=== PATIENT | male | born 1965 | race Caucasian/White ===

== ENCOUNTER 2019-08-17 08:18 | Inpatient (IN) | payer MEDICARE ==
[~2019-08-17] VITALS: Ht 180.3 cm; Wt 72.2 kg
[2019-08-17] MEDS ORDERED: ONDANSETRON 2MG/ML, 2ML ONE (08:45)
[2019-08-17] MEDS ORDERED: KETOROLAC 30 MG/1 ML ONE (08:45)
[2019-08-17] MEDS ORDERED: BICT1TAB PO (08:53)
[2019-08-17 08:56] LABS: BASOPHILS # (AUTO) 0.07 x10^3/uL (0-0.1); BASOPHILS % (AUTO) 1 % (0-1); EOSINOPHILS # (AUTO) 0.16 x10^3/uL (0-0.4); EOSINOPHILS % (AUTO) 2 % (1-7); LYMPHOCYTES # (AUTO) 2.02 x10^3/uL (1-3.4); LYMPHOCYTES % (AUTO) 26 % (22-44); MD NO; MEAN CORPUSCULAR HEMOGLOBIN 30.5 pg (27.5-34.5); MEAN CORPUSCULAR HGB CONC 33.2 g/dL (33.2-36.2); MEAN CORPUSCULAR VOLUME 91.9 fL (81-97); MEAN PLATELET VOLUME 6.9 fL (7.4-10.4); MONOCYTES # (AUTO) 0.57 x10^3/uL (0.2-0.8); MONOCYTES % (AUTO) 7 % (2-9); NEUTROPHILS % (AUTO) 63 % (42-75); PLATELET COUNT 396 x10^3/uL (130-400); RED BLOOD COUNT 4.75 x10^6/uL (4.38-5.82); RED CELL DISTRIBUTION WIDTH 13.8 % (9.4-14.8)
--- NOTE | 2019-08-17 08:56 | NUR ---
PT MEDICATED ORDERED. PT UP TO RESTROOM FOR UA SPECIMEN. REPORT TO MEGHANN SALES. PT C/O LEFT FLANK PAIN RADIATING TO LLQ WITH HX OF KIDNEY STONES.
[2019-08-17] MEDS ORDERED: KETOROLAC 30 MG/1 ML IVPush ONE (09:00)
[2019-08-17] MEDS ORDERED: SODIUM CHLORIDE FLUSH 10ML SYR IVF ONE (09:00)
[2019-08-17] MEDS ORDERED: PLEASE ENTER ALLERGIES MC SCH (09:00)
[2019-08-17] MEDS ORDERED: HYDROmorphone 1 MG/ML, 1ML INJ IVPush PRN (09:00)
[2019-08-17] MEDS ORDERED: ONDANSETRON 2MG/ML, 2ML IVPush ONE (09:00)
[2019-08-17 09:02] LABS: ALANINE AMINOTRANSFERASE 40 U/L (12-78); ALBUMIN 3.2 g/dL (3.4-5.0); ANION GAP 4 mmol/L (5-15); CALCIUM 8.5 mg/dL (8.5-10.1); CHLORIDE 108 mmol/L (98-107); CREATININE 1.04 mg/dL (0.7-1.3)
[2019-08-17 09:05] LABS: ALKALINE PHOSPHATASE 131 U/L (45-117); BILIRUBIN,TOTAL 0.3 mg/dL (0.2-1.0); TOTAL PROTEIN 8.5 g/dL (6.4-8.2)
--- NOTE | 2019-08-17 09:07 | NUR ---
report from prakash mims vss pt made aware of need for ua. as
[2019-08-17 09:22] LABS: MICROSCOPIC AUTO
[2019-08-17 09:24] LABS: CULTURE INDICATED? YES
[2019-08-17] MEDS ORDERED: CEFTRIAXONE PMX 1GM/50ML 50 ML ONE (09:58)
[2019-08-17] MEDS ORDERED: CEFTRIAXONE PMX 1GM/50ML 50 ML IV ONE (10:00)
[2019-08-17] MEDS ORDERED: NEOSPORIN OINT. PKT 1 PACKET ONE (11:49)
--- NOTE | 2019-08-17 11:57 | NUR ---
PT TBADM FOR KIDNEY STONE. REPORT TO JAMES SALES.
--- NOTE | 2019-08-17 11:59 | NUR ---
RECEIVED REPORT FROM HENRRY ZAVALETA. ASSUMING CARE AT THIS TIME. PT RESTING COMFORTABLY ON [employer] WATCHING TV.
[2019-08-17] MEDS ORDERED: AMPICILLIN/SULBACTAM 3 GM in SODIUM CHLORIDE 0.9% 100 ML IV ONE (12:00)
--- NOTE | 2019-08-17 12:21 | NUR ---
IV ABX STARTED PER JUN.
--- NOTE | 2019-08-17 12:27 | NUR ---
REPORT GIVEN TO SUNI CULP RN.
[2019-08-17] MEDS ORDERED: ONDANSETRON ODT 4 MG PO PRN (12:30)
[2019-08-17] MEDS ORDERED: KETOROLAC 30 MG/1 ML IV PRN (12:30)
[2019-08-17] MEDS: ENOXAPARIN 40 MG/0.4 ML SQ SCH (12:30)
[2019-08-17] MEDS ORDERED: morphine SULFATE 10 MG/ML, 1ML IVPush PRN (12:30)
[2019-08-17] MEDS ORDERED: ACETAMINOPHEN 325 MG TABLET PO PRN (12:30)
[2019-08-17] MEDS ORDERED: ONDANSETRON 2MG/ML, 2ML IVPush PRN (12:30)
[2019-08-17] MEDS: SODIUM CHLORIDE 0.9% 1,000 ML IV SCH (13:55)
[2019-08-17] MEDS: CEFTRIAXONE PMX 1GM/50ML 50 ML IV SCH (13:55)
[2019-08-17 14:47] VITALS: BP 124/86
[2019-08-17 19:57] VITALS: BP 108/76
[2019-08-18 01:38] VITALS: BP 118/80
[2019-08-18] MEDS: SODIUM CHLORIDE 0.9% 1,000 ML IV SCH (03:34)
[2019-08-18 06:20] LABS: BASOPHILS # (AUTO) 0.07 x10^3/uL (0-0.1); BASOPHILS % (AUTO) 1 % (0-1); EOSINOPHILS # (AUTO) 0.13 x10^3/uL (0-0.4); EOSINOPHILS % (AUTO) 2 % (1-7); LYMPHOCYTES % (AUTO) 27 % (22-44); MD NO; MEAN CORPUSCULAR HEMOGLOBIN 30.7 pg (27.5-34.5); MEAN CORPUSCULAR HGB CONC 33.4 g/dL (33.2-36.2); MEAN PLATELET VOLUME 6.8 fL (7.4-10.4); MONOCYTES # (AUTO) 0.55 x10^3/uL (0.2-0.8); MONOCYTES % (AUTO) 9 % (2-9); NEUTROPHILS # (AUTO) 3.65 x10^3/uL (1.8-6.8); NEUTROPHILS % (AUTO) 61 % (42-75); PLATELET COUNT 336 x10^3/uL (130-400); RED BLOOD COUNT 4.55 x10^6/uL (4.38-5.82)
[2019-08-18 06:31] LABS: ANION GAP 5 mmol/L (5-15); CHLORIDE 110 mmol/L (98-107); CREATININE 0.76 mg/dL (0.7-1.3)
[2019-08-18 07:50] VITALS: BP 110/72
[2019-08-18] MEDS ORDERED: BICTEGRAV/EMTRICIT/TENOFOV ALA TAB PO SCH (09:00)
[2019-08-18] MEDS: ENOXAPARIN 40 MG/0.4 ML SQ SCH (12:30)
[2019-08-18] MEDS: CEFTRIAXONE PMX 1GM/50ML 50 ML IV SCH (13:07)
[2019-08-18 14:09] VITALS: BP 104/68
== END 2019-08-18 14:42 | disposition left against medical advice (07) | DRG 694 ==
LOC: ED 08:31 → EDIP 12:10 → 3N 13:15
PROVIDERS: ADMIT Internal Medicine; ATTEND Internal Medicine
DX: N20.0 Calculus of kidney (principal); N39.0 Urinary tract infection, site not specified; Q63.1 Lobulated, fused and horseshoe kidney; Z53.29 Procedure and treatment not carried out because of patient's decision for other reasons
CPT/HCPCS: 36415; 74176; 80048; 80053; 81001; 85025; 87086; 96365; 96375; G0378; J0295; J0696; J1885; J2405; J7030

== ENCOUNTER 2019-10-01 07:03 | Day surgery (SDC) | payer MEDICARE ==
[2019-09-30 11:00] VITALS: BP 113/72
[2019-09-30 11:42] LABS: INTERNATIONAL NORMALIZED RATIO 0.95 (0.93-1.1); PROTHROMBIN TIME 10.1 Seconds (9.6-11.5)
[~2019-10-01] VITALS: Ht 180.3 cm; Wt 71.1 kg
[~2019-10-01 07:03] MED LIST: BICT1TAB PO
[2019-10-01] MEDS ORDERED: LACTATED RINGERS 1,000 ML IV SCH (07:25)
[2019-10-01 07:29] VITALS: BP 113/72
[2019-10-01] MEDS ORDERED: CHLORHEXIDINE 15 ML UDC MM ONE (07:30)
[2019-10-01] MEDS ORDERED: CHLORHEXIDINE 15 ML UDC ONE (07:48)
[2019-10-01] MEDS ORDERED: DIPHENHYDRAMINE 50 MG/ML, 1ML IVPush PRN (08:00)
[2019-10-01] MEDS ORDERED: EPHEDRINE 50 MG/ML, 1ML IVPush PRN (08:00)
[2019-10-01] MEDS ORDERED: HYDROmorphone 1 MG/ML, 1ML INJ IVPush PRN (08:00)
[2019-10-01] MEDS ORDERED: LABETALOL 5MG/ML, 20ML IV PRN (08:00)
[2019-10-01] MEDS ORDERED: morphine SULFATE 10 MG/ML, 1ML IVPush PRN (08:00)
[2019-10-01] MEDS ORDERED: hydrALAzine 20 MG/ML, 1ML IV PRN (08:00)
[2019-10-01] MEDS ORDERED: LORazepam 2 MG/ML, 1ML IVPush PRN (08:00)
[2019-10-01] MEDS ORDERED: ACETAMINOPHEN 325 MG TABLET PO PRN (08:00)
[2019-10-01] MEDS ORDERED: OXYcodone 5 MG/5 ML ORAL.SOL UDC PO PRN (08:00)
[2019-10-01] MEDS ORDERED: HYDROcodone/APAP 7.5-325MG/15ML UDC PO PRN (08:00)
[2019-10-01] MEDS ORDERED: DIAZEPAM 5 MG/ML, 2ML IVPush PRN (08:00)
[2019-10-01] MEDS ORDERED: ALBUTEROL/IPRATROPIUM 2.5MG/0.5MG, 3 ML NPPB PRN (08:00)
[2019-10-01] MEDS ORDERED: MIDAZOLAM 1 MG/ML, 2ML IV PRN (08:00)
[2019-10-01] MEDS ORDERED: KETOROLAC 30 MG/1 ML IVPush PRN (08:00)
[2019-10-01] MEDS ORDERED: HALOPERIDOL 5 MG/ML IV PRN (08:00)
[2019-10-01] MEDS ORDERED: MEPERIDINE/PF 25MG/0.5ML IVPush PRN (08:00)
[2019-10-01] MEDS ORDERED: ONDANSETRON 2MG/ML, 2ML IVPush PRN (08:00)
[2019-10-01] MEDS ORDERED: LIDOCAINE-MPF 2% ,5ML ONE (08:18)
[2019-10-01] MEDS ORDERED: ROCURONIUM 10MG/ML,5ML ONE (08:18)
[2019-10-01] MEDS ORDERED: GLYCOPYRROLATE 0.2MG/1ML, 5ML ONE (08:18)
[2019-10-01] MEDS ORDERED: DEXAMETHASONE 4 MG/ML, 1ML ONE (08:18)
[2019-10-01] MEDS ORDERED: PROPOFOL 10 MG/ML, 20ML ONE (08:18)
[2019-10-01] MEDS ORDERED: FENTANYL PF 250 MCG/5ML ONE (08:19)
[2019-10-01] MEDS ORDERED: MIDAZOLAM 1 MG/ML, 2ML ONE (08:19)
[2019-10-01] MEDS ORDERED: LIDOCAINE 2%,20 ML JEL.PF.APP MM ONE (10:05)
== END 2019-10-01 11:55 | disposition home or self-care (01) ==
LOC: OUT 07:03
PROVIDERS: ATTEND Urology
DX: N20.0 Calculus of kidney (principal); Z11.59 Encounter for screening for other viral diseases; I10 Essential (primary) hypertension; F12.90 Cannabis use, unspecified, uncomplicated; Z87.891 Personal history of nicotine dependence; Z79.899 Other long term (current) drug therapy; Z98.890 Other specified postprocedural states
CPT/HCPCS: 36415; 52356; 74018; 82360; 85610; 85730; 87635; 88300; C1769; C2617; J1100; J2250; J2704; J3010; J7120; 76000

== ENCOUNTER → 2019-11-12 | Outpatient (CLI) | payer MEDICARE ==
[~2019-11-12] MED LIST changes: +ACET500T64 PO; +CEFD300C37 PO; +SULF1TAB23 PO
== END | disposition home or self-care (01) ==
LOC: RAD 11:15
PROVIDERS: ATTEND Urology
DX: N20.0 Calculus of kidney (principal)
CPT/HCPCS: 74018

== ENCOUNTER 2019-11-14 14:39 | Outpatient (CLI) | payer MEDICARE | END 2019-11-14 23:59 | disposition home or self-care (01) | LOC: STAR 14:39 | PROVIDERS: ATTEND Orthopaedic Surgery | DX: Z01.818 Encounter for other preprocedural examination (principal); Z11.59 Encounter for screening for other viral diseases | CPT/HCPCS: 36415; 87635 ==

== ENCOUNTER 2019-11-19 05:24 | Day surgery (SDC) | payer MEDICARE ==
[~2019-11-19] VITALS: Ht 180.3 cm; Wt 70.0 kg
[2019-11-19 06:06] VITALS: BP 114/61
[2019-11-19] MEDS ORDERED: CHLORHEXIDINE 15 ML UDC MM STA (06:08)
[2019-11-19] MEDS ORDERED: LACTATED RINGERS 1,000 ML IV ONE (06:08)
[2019-11-19] MEDS ORDERED: CHLORHEXIDINE 15 ML UDC ONE (06:11)
[2019-11-19] MEDS ORDERED: FENTANYL PF 250 MCG/5ML ONE (06:22)
[2019-11-19] MEDS ORDERED: MIDAZOLAM 1 MG/ML, 2ML ONE (06:22)
[2019-11-19] MEDS ORDERED: BUPIVACAINE/PF 0.25% ONE (06:25)
[2019-11-19] MEDS ORDERED: CLINDAMYCIN 150 MG/ML, 6ML ONE (06:25)
[2019-11-19] MEDS ORDERED: LIDOCAINE/PF 1%-EPI 1:200K, 30 ML ONE (06:25)
[2019-11-19] MEDS ORDERED: EPINEPHRINE 1 MG/ML, 1ML ONE (06:26)
[2019-11-19] MEDS ORDERED: ACETAMINOPHEN 500 MG TABLET ONE (06:36)
[2019-11-19] MEDS ORDERED: LIDOCAINE PF 2%, 5ML ONE (06:56)
[2019-11-19] MEDS ORDERED: ACETAMINOPHEN 500 MG TABLET PO ONE (07:00)
[2019-11-19] MEDS ORDERED: ONDANSETRON 2MG/ML, 2ML IVPush PRN (07:30)
[2019-11-19] MEDS ORDERED: PROMETHAZINE 25 MG/ML, 1ML IVPush PRN (07:30)
[2019-11-19] MEDS ORDERED: PROMETHAZINE 25 MG SUPP PR PRN (07:30)
[2019-11-19] MEDS ORDERED: OXYcodone 5 MG/5 ML ORAL.SOL UDC PO PRN (07:30)
[2019-11-19] MEDS ORDERED: SUCCINYLCHOLINE 20 MG/ML, 10ML ONE (07:37)
[2019-11-19] MEDS ORDERED: ROCURONIUM 10MG/ML,5ML ONE (07:37)
[2019-11-19] MEDS ORDERED: PROPOFOL 10 MG/ML, 20ML ONE (07:37)
[2019-11-19] MEDS ORDERED: ONDANSETRON 2MG/ML, 2ML ONE (07:37)
[2019-11-19] MEDS ORDERED: CEFAZOLIN 1,000 MG ONE (07:37)
[2019-11-19] MEDS ORDERED: GLYCOPYRROLATE 0.2MG/1ML, 5ML ONE (07:37)
[2019-11-19] MEDS ORDERED: NEOSTIGMINE 1 MG/ML, 10ML ONE (07:37)
[2019-11-19] MEDS ORDERED: DEXAMETHASONE 4 MG/ML, 1ML ONE (07:37)
[2019-11-19] MEDS ORDERED: FENTANYL PF 100 MCG/2ML ONE ×2 (09:05→09:43)
[2019-11-19] MEDS: FENTANYL PF 100 MCG/2ML IV PRN ×2 (09:36→09:54)
[2019-11-19] MEDS ORDERED: HYDROmorphone 1 MG/ML, 1ML INJ ONE (09:43)
[2019-11-19] MEDS ORDERED: OXYcodone 5 MG/5 ML ORAL.SOL UDC ONE (09:43)
[2019-11-19] MEDS: HYDROmorphone 1 MG/ML, 1ML INJ IVPush PRN ×2 (09:51→10:04)
== END 2019-11-19 12:35 | disposition home or self-care (01) ==
LOC: OUT 05:24
PROVIDERS: ATTEND Orthopaedic Surgery
DX: S46.011A Strain of muscle(s) and tendon(s) of the rotator cuff of right shoulder, initial encounter (principal); G89.18 Other acute postprocedural pain; S43.431A Superior glenoid labrum lesion of right shoulder, initial encounter; M75.41 Impingement syndrome of right shoulder; M19.011 Primary osteoarthritis, right shoulder; G56.21 Lesion of ulnar nerve, right upper limb; G56.01 Carpal tunnel syndrome, right upper limb; M47.22 Other spondylosis with radiculopathy, cervical region; M48.02 Spinal stenosis, cervical region; Z87.891 Personal history of nicotine dependence; X58.XXXA Exposure to other specified factors, initial encounter; Y93.89 Activity, other specified; Y92.89 Other specified places as the place of occurrence of the external cause; Y99.8 Other external cause status
CPT/HCPCS: 29823; 29824; 29826; 29827; 64415; 64718; 64719; 64721; C1713; C5271; J0171; J0330; J0690; J1100; J1170; J2250; J2405; J2704; J2710; J3010; J3490; J7120; Q4100